=== PATIENT | male | born 1955 | race Caucasian/White ===

== ENCOUNTER 2021-08-12 14:19 | Emergency (ER) | payer MEDICARE, OTHER ==
[~2021-08-12 14:19] MED LIST: ASPIRIN EC81 MG PO
== END 2021-08-12 17:07 | disposition home or self-care (01) ==
LOC: ER1 14:19
DX: S00.512A Abrasion of oral cavity, initial encounter (principal); J44.9 Chronic obstructive pulmonary disease, unspecified; I50.9 Heart failure, unspecified; Z79.82 Long term (current) use of aspirin; X58.XXXA Exposure to other specified factors, initial encounter
CPT/HCPCS: 99282